=== PATIENT | female | born 1985 | race Caucasian/White ===

== ENCOUNTER 2016-04-20 15:45 | Emergency (ER) ==
[2016-04-20 16:31] LABS: AGAP 21; ALBUMIN 3.6 g/dL (3.5-5.0); ALKALINE PHOSPHATASE 99 U/L (32-104); BASO% 0.1 % (0.0-0.8); BUN 29 mg/dL (8-22); CALCIUM 9.4 mg/dL (8.8-10.2); CHLORIDE 95 mmol/L (98-107); COSMO 280; GOT 9 U/L (10-30); GPT 8 U/L (10-36); HEMATOCRIT 34.8 % (37.0-47.0); HEMOGLOBIN 10.9 g/dL (12.0-16.0); IMM GRAN# 0.03 X1000 (0.0-0.04); IMM GRAN% 0.3 % (0.0-0.5); LYMPH# 1.22 X1000 (1.2-3.4); MANUAL DIFF NEEDED? NO; MCH 21.5 PG (27-31); MCHC 31.3 g/dL (33-37); MCV 68.5 FL (81-99); MPV 11.5 FL (7.4-10.4); NEUT% 79.6 % (42.2-75.2); PLT 426 X1000 (130-400); POTASSIUM 2.9 mmol/L (3.5-5.1); RBC 5.08 XMIL (4.2-5.4); SODIUM 137 mmol/L (136-145); TCO2 21 mmol/L (25-35); TOTAL BILIRUBIN 0.31 mg/dL (0.20-1.00)
[2016-04-20] MEDS ORDERED: MORPHINE IV ONE (16:58)
[2016-04-20] MEDS ORDERED: ZOFRAN IV ONE (16:58)
[2016-04-20] MEDS ORDERED: NS 1,000 ML IV ONE (16:58)
[2016-04-20] MEDS ORDERED: MOTRIN PO ONE (16:59)
--- NOTE | 2016-04-20 16:59 | PROVIDER DOCUMENTATION ---
HPI-Abdominal Pain/GI Problem - General Chief Complaint: Abdominal Pain Stated Complaint: FEVER/VOMITING/CANNOT NOT VOID Time Seen by Provider: 04/20/16 16:46 Source: patient Allergies/Adverse Reactions: Patient Allergies Allergy/AdvReac Type Severity Reaction Status Date / Time hydroxyzine Allergy Severe heart race Verified 04/20/16 18:41 Latex, Natural Rubber Allergy Intermediate RASH Verified 04/20/16 18:41 tuberculin, purified protein Allergy Intermediate HIVES Verified 04/20/16 18:41 deriva [tuberculin,purif.prot.deriv.] diphenhydramine HCl * Allergy Mild RASH Verified 04/20/16 18:41 [From Benadryl] ketorolac tromethamine * Allergy Mild RASH Verified 04/20/16 18:41 [From Toradol] metoclopramide HCl * Allergy RASH Verified 04/20/16 18:41 [From Reglan] Penicillins Allergy RASH Verified 04/20/16 18:41 ondansetron HCl * AdvReac Intermediate VOMITING Verified 04/20/16 18:41 [From Zofran] Home Medications: Clonazepam [Klonopin] 1 mg PO TID 03/25/16 - History of Present Illness-ABD Nature of Presenting Problems: Pt is a 31 y/o F c chief complaint of lower abd pain and dysuria x 4 days. She has also had a subjective fever c chills and nausea and vomiting. Pt has an extensive h/o chronic abd pain stemming from endometriosis. In Dec 2015 she had a hysterectomy and has not had abd pain since. Pt states her pain is focalized on her L flank and radiates to her groin. Pt describes the pain as a stabbing sensation that is intermittent. Pt has a h/o renal stones. On arrival , pt is afebrile and in minimal distress. Review of Systems - Adult - REVIEW OF SYSTEMS - ADULT Constitutional: reports: no symptoms reported. denies: chills, fatique Eyes: reports: no symptoms reported. denies: blurred vision, double vision Ears, Nose, Mouth & Throat: reports: no symptoms reported. denies: ear pain, nose pain Cardiovascular: reports: no symptoms reported. denies: chest pain, orthopnea Respiratory: reports: no symptoms reported. denies: cough, shortness of breath Gastrointestinal: reports: abdominal pain. denies: nausea Genitourinary: reports: dysuria. denies: hematuria Musculoskeletal: reports: no symptoms reported. denies: bone pain, joint pain, joint swelling Integumentary: reports: no symptoms reported. denies: itching, rash Neurological: reports: no symptoms reported. denies: numbness, paresthesia Psychiatric: reports: no symptoms reported. denies: anxiety, emotional problems Endocrine: reports: no symptoms reported. denies: cold intolerance, heat intolerance Hematologic/Lymphatic: reports: no symptoms reported. denies: blood clots, low blood count Allergic/Immunologic: reports: no symptoms reported. denies: allergic reactions , food allergy All Other Systems: Reviewed and Negative Past History - Adult - PAST MEDICAL HISTORY-ADULT Review of Records: reports: Old Records Reviewed, Nursing Assessment Review, Medications Reviewed, Social history reviewed & non-contributory. Major Childhood Illnesses: denies: history unknown, Hepatitis B Cardiovascular: denies: A-Fib, CHF Respiratory: denies: bronchitis, cystic fibrosis Gastrointestinal: denies: Crohn's, colitis, inflammatory bowel disease Obstetrical/Gynecological: reports: endometriosis, ovarian cysts, PID/STD Genitourinary: denies: incontinence, chronic UTI's Musculoskeletal: reports: chronic pain (with narcotic abuse/dependence) Neurological: denies: CVA, Philippe's Disease, Muscular Dystrophy Psychiatric: reports: anxiety Endocrine/Immune: denies: hypoglycemia Other Conditions: reports: other cancer (R breast cancer dx in Jan 2016, managed by Dr. Sykes) Additional History: Frequent ER visits for vaginal bleeding, abdominal pain, and toothache. - PRIOR SURGERIES/PROCEDURES Surgical/Procedure History: reports: recent surgery, other (D&C 12/2013) - PRIOR HOSPITALIZATIONS Prior Hospitalizations: reports: none - IMMUNIZATION STATUS Childhood Immunizations: See Nurse Assessment Flu Vaccine: See Nurse Assessment - FAMILY HISTORY Family History: CAD over 55 yo - SOCIAL HISTORY Smoking: quit less than 1 year, cigarettes Substance Use: none/never Alcohol Use Frequency: never Living Situation: family Physical Exam-General - PHYSICAL EXAM-ADULT Initial Vital Signs Reviewed: Yes - CONSTITUTIONAL General Appearance: appears well, alert, no apparent distress - EYES Eyes: PERRL/EOMI, pink conjunctivae - HEAD, EARS, NOSE, MOUTH & THROAT HENMT: normocephalic/atraumatic, moist mucous membranes, normal ENT inspection - NECK Neck: non-tender, full range of motion, normal inspection - RESPIRATORY Respiratory: chest non-tender, lungs clear, normal breath sounds - CARDIOVASCULAR Cardiovascular: normal peripheral pulses, regular rate, rhythm, no edema - GASTROINTESTINAL (ABDOMEN) Abdominal Exam: normal bowel sounds, tenderness (L flank, LLQ pain) - LYMPHATIC Lymphatic: no adenopathy - MUSCULOSKELETAL Back Exam: normal inspection, no CVA tenderness, no vertebral tenderness Extremity: normal range of motion, non-tender, normal gait - SKIN Integumentary: normal color, normal turgor, warm/dry - NEUROLOGIC Neurologic: grossly normal, no motor/sensory deficits - PSYCHIATRIC Psych/Mental Status: normal mood/affect, normal thought content, normal thought process, oriented x 3 Progress - CT/MRI 1 CT Study: Abdomen, Pelvis Impression: Abnormal (BILAT PYELONEPHRITIS, WORST ON THE LEFT - DR. SCHNEIDER) Departure - Departure Time of Disposition Order: 19:38 DIAGNOSIS: Pyelonephritis UTI (urinary tract infection) Qualifiers: Urinary tract infection type: acute cystitis Hematuria presence: without hematuria Qualified Code(s): N30.00 - Acute cystitis without hematuria Disposition: HOME 01 Certified Medical Emergency: Emergent Condition: Stable Additional Instructions: ED Follow Up Instructions: You have been treated by a care provider in the Emergency Department. These instructions are being provided to you so you can have an understanding of how to care for yourself upon discharge. Upon discharge from the Emergency Department, you are responsible for making arrangements for follow-up care by a physician of your choice. Take all prescribed medications as directed. Return to the Emergency Department immediately for any new or worsening symptoms. You may call the Physician Referral phone number at [phone] to obtain a list of Physicians who are taking new patients. Prescriptions: Nitrofurantoin [place]/Macrocryst [Macrobid] 100 mg PO BID #14 capsule Hydrocodone/APAP 7.5 mg/325 mg [[place]-7.5] 1 each PO Q6H PRN PRN #10 tablet PRN Reason: Pain Promethazine [Phenergan] 25 mg PO Q6H PRN PRN #20 tablet PRN Reason: Nausea Referrals: Kaleb Mcarthur [Primary Care Provider] - Pasha Sanchez DO [STAFF PHYSICIAN] - Attestation - Physician/ Mid-level Attestation Patient care was provided by Mid-level provider (INSTRUCTIONAL TECHNOLOGY INSTRUCTOR/PA):: Yes Mid-level documentation review:: The Mid-level provider documentation, treatment plan and medical decision making was reviewed by the physician who agrees with all treatment and medical decision making by the MLP.
[2016-04-20 19:15] LABS: URINE CULTURE NEEDED? NO; URINE MICRO REVIEW NEEDED? NO; URINE SOURCE CLEAN CATCH
[2016-04-20 19:18] LABS: BILIRUBIN URINE NEGATIVE (NEGATIVE); BLOOD URINE NEGATIVE (NEGATIVE); COLOR YELLOW; GLUCOSE URINE NEGATIVE (NEGATIVE); LEUKOCYTES URINE LARGE (NEGATIVE); NITRITE URINE POSITIVE (NEGATIVE); PROTEIN URINE 70 mg/dL (NEGATIVE); SP GRAVITY URINE 1.023; TURBIDITY URINE HAZY (CLEAR); UROBILINOGEN URINE NORMAL (NORMAL)
[2016-04-20 19:19] LABS: UR EPITHELIAL CELLS <10 /HPF (<10); URINE BACTERIA 4+ /HPF; URINE RBC <10 /HPF (<10); URINE WBC TNTC /HPF (<10)
[2016-04-20] MEDS ORDERED: LEVAQUIN 500 MG/D5W 100 ML IV ONE (19:30)
[2016-04-20] MEDS ORDERED: MACROBID PO ONE (19:33)
[2016-04-20] MEDS ORDERED: KLOR-CON PO ONE (19:35)
[2016-04-20] MEDS ORDERED: PHENERGAN IV ONE (19:38)
[2016-04-20] MEDS ORDERED: SODIUM CHLORIDE 0.9% INJ ONE (19:38)
[2016-04-20] MEDS: NS + KCL 20 MEQ 1,000 ML IV SCH ×2 (19:58→21:45)
[2016-04-20] MEDS ORDERED: DILAUDID IV ONE (20:40)
[2016-04-20 21:17] VITALS: BP 107/74
--- NOTE | 2016-04-20 22:29 | Diag Imaging Result Document ---
PROCEDURE NAME: CT ABD/PELVIS W/ IV CONT ONLY - 04/20/2016 CT ABDOMEN AND PELVIS WITH IV CONTRAST: COMPARISON: 12/30/2015. FINDINGS: There is diffuse hepatic steatosis. There is bilateral heterogeneous enhancement of the kidneys that is more prominent on the left compatible with pyelonephritis. The left kidney is slightly enlarged. No discrete renal mass is identified. There is no evidence of significant hydronephrosis. However, the renal collecting systems are marginally prominent, likely related to the pyelonephritis. No ureteral stones are identified. The urinary bladder is unremarkable. There is nothing that would indicate appendicitis. There are few colonic diverticula, but there is no evidence of diverticulitis. There appears to have been a previous hysterectomy. The remainder of the solid viscera of the abdomen and pelvis and the remainder of the GI tract is essentially unremarkable. IMPRESSION: 1. Bilateral pyelonephritis that is worst on the left. 2. Diffuse hepatic steatosis.
== END 2016-04-20 22:05 | disposition home or self-care (01) ==
LOC: ED 15:45
DX: N12 Tubulo-interstitial nephritis, not specified as acute or chronic (principal); N30.00 Acute cystitis without hematuria; K76.0 Fatty (change of) liver, not elsewhere classified; R50.9 Fever, unspecified; R11.2 Nausea with vomiting, unspecified; R10.30 Lower abdominal pain, unspecified; R30.0 Dysuria; R10.9 Unspecified abdominal pain; R10.819 Abdominal tenderness, unspecified site; R10.814 Left lower quadrant abdominal tenderness; G89.29 Other chronic pain; F41.9 Anxiety disorder, unspecified; Z79.899 Other long term (current) drug therapy; Z87.442 Personal history of urinary calculi; Z85.3 Personal history of malignant neoplasm of breast; Z87.42 Personal history of other diseases of the female genital tract; Z87.891 Personal history of nicotine dependence; Z82.49 Family history of ischemic heart disease and other diseases of the circulatory system
CPT/HCPCS: 74177; 80053; 81001; 85025; 87804; J1170; J2270; J2405; J2550; J3480; J7030; Q9967

== ENCOUNTER 2016-06-26 13:51 | Emergency (ER) | payer OTHER ==
[2016-06-26 14:31] VITALS: BP 113/68
--- NOTE | 2016-06-26 15:27 | Diag Imaging Result Document ---
PROCEDURE NAME: CERVICAL SPINE COMPLETE - 06/26/2016 CERVICAL SPINE AP AND LATERAL WITH OBLIQUES, SIX VIEWS: FINDINGS: There is slight curvature to the spine on the frontal view. Good alignment on the lateral view. No precervical soft tissue swelling. No subluxation. No bone spurring. IMPRESSION: Negative exam. A CT is recommended if there is clinical concern for a neck fracture.
[2016-06-26] MEDS ORDERED: DECADRON IM ONE (16:06)
[2016-06-26] MEDS ORDERED: NORFLEX IM ONE (16:06)
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
== END 2016-06-26 16:24 | disposition home or self-care (01) ==
LOC: ED 13:51
DX: S16.1XXA Strain of muscle, fascia and tendon at neck level, initial encounter (principal); M54.2 Cervicalgia; M54.9 Dorsalgia, unspecified; V44.6XXA Car passenger injured in collision with heavy transport vehicle or bus in traffic accident, initial encounter; G89.29 Other chronic pain; E07.9 Disorder of thyroid, unspecified; C50.911 Malignant neoplasm of unspecified site of right female breast; Z87.42 Personal history of other diseases of the female genital tract; F17.210 Nicotine dependence, cigarettes, uncomplicated; Z71.6 Tobacco abuse counseling; Z79.899 Other long term (current) drug therapy; Z82.49 Family history of ischemic heart disease and other diseases of the circulatory system
CPT/HCPCS: 72050; 96372; J2360

== ENCOUNTER 2016-06-27 08:50 | Emergency (ER) ==
[2016-06-27 08:55] VITALS: BP 125/84
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
[2016-06-27] MEDS ORDERED: NORCO-7.5 PO ONE (10:02)
[2016-06-27] MEDS ORDERED: MOTRIN PO PRN (10:03)
[2016-06-27] MEDS ORDERED: ROBAXIN PO SCH (21:00)
[2016-06-28] MEDS ORDERED: PEPCID PO SCH (09:00)
== END 2016-06-27 10:59 | disposition home or self-care (01) ==
LOC: ED 08:50
DX: S16.1XXA Strain of muscle, fascia and tendon at neck level, initial encounter (principal); M54.2 Cervicalgia; R51 Headache; M79.602 Pain in left arm; M79.601 Pain in right arm; M54.6 Pain in thoracic spine; G89.29 Other chronic pain; Z87.42 Personal history of other diseases of the female genital tract; Z85.3 Personal history of malignant neoplasm of breast; Z82.49 Family history of ischemic heart disease and other diseases of the circulatory system; V89.2XXA Person injured in unspecified motor-vehicle accident, traffic, initial encounter

== ENCOUNTER 2016-06-27 12:47 | Emergency (ER) ==
[2016-06-27 13:01] VITALS: BP 118/85
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
== END 2016-06-27 14:36 | disposition home or self-care (01) ==
LOC: P.ED 12:47
DX: M62.838 Other muscle spasm (principal); M54.2 Cervicalgia; R10.30 Lower abdominal pain, unspecified; Z79.899 Other long term (current) drug therapy; F17.210 Nicotine dependence, cigarettes, uncomplicated; V89.2XXD Person injured in unspecified motor-vehicle accident, traffic, subsequent encounter
CPT/HCPCS: 99282

== ENCOUNTER 2016-07-03 11:04 | Emergency (ER) ==
[2016-07-03] MEDS ORDERED: NS 1,000 ML IV ONE (11:23)
[2016-07-03] MEDS ORDERED: ZOFRAN IV ONE (11:24)
[2016-07-03] MEDS ORDERED: MORPHINE IV ONE (12:03)
[2016-07-03] MEDS ORDERED: SODIUM CHLORIDE 0.9% INJ ONE ×2 (12:03→14:00)
[2016-07-03] MEDS ORDERED: PHENERGAN IV ONE ×2 (12:03→14:00)
[2016-07-03 12:19] LABS: URINE CULTURE PL NEEDED? NO; URINE SOURCE CLEAN CATCH
[2016-07-03 12:37] LABS: BASO% 0.1 % (0.0-0.8); EOS# 0.07 X1000 (0.0-0.7); EOS% 0.7 % (0.0-10.0); IMM GRAN# 0.01 X1000 (0.0-0.04); IMM GRAN% 0.1 % (0.0-0.5); LYMPH# 0.67 X1000 (1.2-3.4); LYMPH% 6.5 % (20.5-51.1); MANUAL DIFF NEEDED? YES; MCHC 30.8 g/dL (33-37); MCV 74.7 FL (81-99); MONO% 4.9 % (1.7-9.3); MPV 10.1 FL (7.4-10.4); PLT 562 X1000 (130-400); RBC 5.22 XMIL (4.2-5.4)
[2016-07-03 12:45] LABS: AGAP 13; ALBUMIN 4.4 g/dL (3.5-5.0); ALKALINE PHOSPHATASE 117 U/L (32-104); BUN 10 mg/dL (8-22); CALCIUM 9.8 mg/dL (8.8-10.2); CHLORIDE 101 mmol/L (98-107); COSMO 273; GOT 66 U/L (10-30); GPT 35 U/L (10-36); LIPASE 10 U/L (13-60); POTASSIUM 4.8 mmol/L (3.5-5.1); SODIUM 137 mmol/L (136-145); TCO2 23 mmol/L (25-35); TOTAL PROTEIN 8.4 g/dL (6.3-8.3)
[2016-07-03 12:52] LABS: BILIRUBIN URINE NEGATIVE (NEGATIVE); BLOOD URINE NEGATIVE (NEGATIVE); CLARITY CLEAR (CLEAR); COLOR YELLOW; GLUCOSE URINE NEGATIVE (NEGATIVE); LEUKOCYTES URINE 1+ (NEGATIVE); NITRITE URINE NEGATIVE (NEGATIVE); PROTEIN URINE TRACE mg/dL (NEGATIVE); SP GRAVITY URINE 1.005; UROBILINOGEN URINE NORMAL
[2016-07-03 12:53] LABS: URINE EPITHELIAL CELLS <10 /HPF (<10); URINE RBC <10 /HPF (<10)
--- NOTE | 2016-07-03 13:44 | Diag Imaging Result Document ---
PROCEDURE NAME: ABDOMEN FLAT/UPRIGHT - 07/03/2016 ABDOMEN, 2 VIEWS: COMPARISON: 03/07/2016. FINDINGS: There is a nonobstructive bowel gas pattern. No free air or abnormal calcifications. IMPRESSION: No acute disease.
[2016-07-03 13:53] LABS: EOS 1 % (1-10); LYMPHS 8 % (21-51); MONO 1 % (1-9); NRBC 1 % (0-0)
[2016-07-03] MEDS ORDERED: G.I. COCKTAIL PO ONE (14:00)
[2016-07-03] MEDS ORDERED: ROCEPHIN 1 GM/NS 50 ML IV ONE (14:00)
[2016-07-03] MEDS ORDERED: OFIRMEV 1000 MG/ISOTONIC SOLN 100 ML IV ONE (14:00)
[2016-07-03 14:09] LABS: NEUT% 87.7 % (42.2-75.2)
--- NOTE | 2016-07-03 14:25 | PROVIDER DOCUMENTATION ---
HPI-Abdominal Pain/GI Problem <ToneyTorsten - Last Filed: 07/03/16 14:23> - General Source: patient - History of Present Illness-ABD Nature of Presenting Problems: Pt is 31 y/o F presents to the ED with suprapubic pain. Pt states chronic UTIs and N/V. Pt states symptoms started last night. Abdominal Pain Onset Location: reports: suprapubic Pain Radiation: reports: no radiation Quality of Pain: reports: aching Severity in ED: reports: mild Onset/Duration: reports: last night Timing: reports: still present, intermittent Activities at Onset: reports: light activity Exposure to sick contacts?: No Modifying Factors: improves with: nothing Associated Symptoms: reports: nausea, vomiting. denies: anxiety, arm pain, back /neck pain, chest pain, constipation, cough, diaphoresis, diarrhea, dizziness, EENT symptoms, fatigue, fever/chills, genitourinary problems, headaches, heartburn, joint pain, loss of appetite, malaise, muscle aches, sinus congestion /drainage, rash, seizure, shortness of breath, sensory/motor loss, pain with inspiration, swelling/mass in abdomen, syncope, weakness, trouble walking Last BM: unsure Dark Stools Present?: reports: none noticed Rectal Bleeding: reports: none Rectal Pain: reports: none Emesis Description: reports: none Bruising or Bleeding Gums?: No Similar Symptoms Previously?: Yes Recently seen or treated by another doctor?: Yes <Corina Pretty - Last Filed: 07/03/16 14:31> - General Chief Complaint: N/V/D Stated Complaint: N/V/D Time Seen by Provider: 07/03/16 11:14 Allergies/Adverse Reactions: Patient Allergies Allergy/AdvReac Type Severity Reaction Status Date / Time hydroxyzine Allergy Severe heart race Verified 06/27/16 09:16 Latex, Natural Rubber Allergy Intermediate RASH Verified 06/27/16 09:16 tuberculin, purified protein Allergy Intermediate HIVES Verified 06/27/16 09:16 deriva [tuberculin,purif.prot.deriv.] diphenhydramine HCl * Allergy Mild RASH Verified 06/27/16 09:16 [From Benadryl] ketorolac tromethamine * Allergy Mild RASH Verified 06/27/16 09:16 [From Toradol] metoclopramide HCl * Allergy RASH Verified 06/27/16 09:16 [From Reglan] Penicillins Allergy RASH Verified 06/27/16 09:16 ondansetron HCl * AdvReac Intermediate VOMITING Verified 06/27/16 09:16 [From Zofran] Home Medications: Home Medication List Medication Instructions Recorded Confirmed Last Taken Type Famotidine [Pepcid] 20 mg PO DAILY #20 tablet 06/26/16 06/27/16 06/27/16 05:00 Rx Ibuprofen [Motrin] 800 mg PO Q8H PRN PRN #30 tablet 06/26/16 06/27/16 06/27/16 05:00 Rx Methocarbamol [Robaxin] 500 mg PO BID #30 tablet 06/26/16 06/27/16 06/27/16 05: 00 Rx Methocarbamol 500 mg PO BID #20 tablet 06/27/16 Unknown Rx Tramadol [Ultram] 50 mg PO Q8HR #10 tablet 06/27/16 Unknown Rx Tramadol [Ultram] 50 mg PO Q8HR #6 tablet 06/27/16 Unknown Rx Promethazine [Phenergan] 25 mg PO Q6H PRN PRN #20 tablet 07/03/16 Unknown Rx Sulfamethoxazole/Trimethoprim 1 each PO BID #10 tablet 07/03/16 Unknown Rx [Bactrim Ds Tablet] Review of Systems - Adult - REVIEW OF SYSTEMS - ADULT Constitutional: reports: no symptoms reported Eyes: reports: no symptoms reported Ears, Nose, Mouth & Throat: reports: no symptoms reported Cardiovascular: reports: irregular heart rate (tachy). denies: chest pain, heart murmur Respiratory: reports: no symptoms reported Gastrointestinal: reports: abdominal pain (suprapubic), nausea, vomiting. denies: diarrhea Genitourinary: reports: no symptoms reported Musculoskeletal: reports: no symptoms reported Integumentary: reports: no symptoms reported Neurological: reports: no symptoms reported Psychiatric: reports: no symptoms reported Endocrine: reports: no symptoms reported Hematologic/Lymphatic: reports: no symptoms reported Allergic/Immunologic: reports: no symptoms reported All Other Systems: Reviewed and Negative <Corina Pretty - Last Filed: 07/03/16 14:31> Past History - Adult - PAST MEDICAL HISTORY-ADULT Major Childhood Illnesses: denies: history unknown, Hepatitis B Cardiovascular: denies: A-Fib, CHF Respiratory: denies: bronchitis, cystic fibrosis Gastrointestinal: reports: other (chronic abdominal pain) Obstetrical/Gynecological: reports: endometriosis, ovarian cysts Genitourinary: denies: incontinence, chronic UTI's Musculoskeletal: reports: chronic pain (with narcotic abuse/dependence) Neurological: denies: CVA, [place]'s Disease, Muscular Dystrophy Psychiatric: reports: anxiety Endocrine/Immune: reports: thyroid disorder. denies: hypoglycemia Other Conditions: reports: other cancer (R breast cancer dx in Jan 2016, managed by Dr. Sykes) Additional History: Frequent ER visits for vaginal bleeding, abdominal pain, and toothache. - PRIOR SURGERIES/PROCEDURES Surgical/Procedure History: reports: hysterectomy, - PRIOR HOSPITALIZATIONS Prior Hospitalizations: reports: none - IMMUNIZATION STATUS Childhood Immunizations: See Nurse Assessment Flu Vaccine: See Nurse Assessment - FAMILY HISTORY Family History: reviewed, not pertinent <Torsten Ziegler - Last Filed: 07/03/16 14:23> - PAST MEDICAL HISTORY-ADULT Review of Records: reports: Nursing Assessment Review, Medications Reviewed, Social history reviewed & non-contributory. Major Childhood Illnesses: reports: denies history Cardiovascular: reports: HTN Respiratory: reports: denies history Gastrointestinal: reports: denies history Obstetrical/Gynecological: reports: denies history Genitourinary: reports: denies history Musculoskeletal: reports: denies history Neurological: reports: denies history Psychiatric: reports: anxiety Endocrine/Immune: reports: denies history Other Conditions: reports: denies history - PRIOR SURGERIES/PROCEDURES Surgical/Procedure History: reports: hysterectomy - IMMUNIZATION STATUS Childhood Immunizations: See Nurse Assessment Flu Vaccine: See Nurse Assessment - FAMILY HISTORY Family History: reviewed, not pertinent - SOCIAL HISTORY Smoking: denies Substance Use: denies Living Situation: family <Corina Pretty - Last Filed: 07/03/16 14:31> Physical Exam-General - PHYSICAL EXAM-ADULT Initial Vital Signs Reviewed: Yes - CONSTITUTIONAL General Appearance: appears well, alert, no apparent distress - EYES Eyes: PERRL/EOMI, pink conjunctivae, fundi clear, no AV nicking - HEAD, EARS, NOSE, MOUTH & THROAT HENMT: normocephalic/atraumatic, moist mucous membranes, normal ENT inspection, TMs normal, pharynx normal - NECK Neck: non-tender, full range of motion, supple, normal inspection - RESPIRATORY Respiratory: chest non-tender, lungs clear, normal breath sounds, no pleuratic chest pain, no respiratory distress, no accessory muscle use - CARDIOVASCULAR Cardiovascular: normal peripheral pulses, no edema, no gallop, no JVD, no murmur , tachycardia - GASTROINTESTINAL (ABDOMEN) Abdominal Exam: normal bowel sounds, soft, no organomegaly, no pulsatile mass, tenderness - LYMPHATIC Lymphatic: no adenopathy - MUSCULOSKELETAL Back Exam: normal inspection, no CVA tenderness, no vertebral tenderness Extremity: normal range of motion, non-tender, normal gait, normal inspection, no pedal edema, no calf tenderness, normal capillary refill, pelvis stable - SKIN Integumentary: normal color, normal turgor, warm/dry - NEUROLOGIC Neurologic: grossly normal - PSYCHIATRIC Psych/Mental Status: normal mood/affect, oriented x 3 <Corina Pretty - Last Filed: 07/03/16 14:31> Progress - PLAN OF CARE/RESULTS Progress/Plan/Lab Results: Laboratory Tests 07/03/16 07/03/16 07/03/16 11:59 11:59 12:11 WBC 10.28 RBC 5.22 Hgb 12.0 Hct 39.0 MCV 74.7 L MCH 23.0 L MCHC 30.8 L RDW Std Deviation 19.5 H Plt Count 562 H MPV 10.1 Immature Gran % (Auto) 0.1 Neut % (Auto) 87.7 H Lymph % (Auto) 6.5 L [place] % (Auto) 4.9 Eos % (Auto) 0.7 Baso % (Auto) 0.1 Immature Gran # (Auto) 0.01 Neut # (Auto) 9.02 H Lymph # (Auto) 0.67 L [place] # (Auto) 0.50 Eos # (Auto) 0.07 Baso # (Auto) 0.01 Segmented Neutrophils 90 H Lymphocytes 8 L Monocytes 1 Eosinophils 1 Nucleated RBCs 1 H Sodium 137 Potassium 4.8 Chloride 101 Carbon Dioxide 23 L Anion Gap 13 BUN 10 Creatinine 0.5 Estimated GFR/1.73 m2 > 60 BUN/Creatinine Ratio 20 Glucose 99 Calculated Osmolality 273 Calcium 9.8 Total Bilirubin 0.50 AST 66 H ALT 35 Alkaline Phosphatase 117 H Total Protein 8.4 H Albumin 4.4 Globulin 4.0 Albumin/Globulin Ratio 1.0 Lipase 10 L Urine Source CLEAN CATCH Urine Color YELLOW Urine Clarity CLEAR Urine pH 8.0 Ur Specific [place] 1.005 Urine Protein TRACE A Urine Ketones TRACE Urine Blood NEGATIVE Urine Nitrite NEGATIVE Urine Bilirubin NEGATIVE Urine Urobilinogen NORMAL Urine Microscopic RBC <10 Urine WBC 1+ A Urine Microscopic WBC 10-20 A Ur Epithelial Cells <10 Urine Glucose NEGATIVE Orders Category Date Time Status Saline Loc NOW Care 07/03/16 11:23 Active ABDOMEN FLAT/UPRIGHT [RAD] Stat Exams 07/03/16 11:24 Draft CBC WITH DIFF [HEME] Stat Lab 07/03/16 11:59 Completed COMPREHENSIVE METABOLIC PANEL [CHEM] Stat Lab 07/03/16 11:59 Completed LIPASE [CHEM] Stat Lab 07/03/16 11:[address] W/POSS RFLX CULT [URINALYSIS] Stat Lab 07/03/16 12:11 Completed 0.9% Sodium Chloride Inj [Ns] 1,000 ml Med 07/03/16 11:23 Discontinued IV 999 mls/hr Acetaminophen [Ofirmev 1000 mg/Isotonic Soln] 100 ml Med 07/03/16 14:00 Discontinued IV NOW CefTRIAXONE 1 GM/NS [Rocephin 1 gm/Ns] 50 ml Med 07/03/16 14:00 Discontinued IV NOW Lido/[place] Alk/Al&mg Hydrox [G.i. Cocktail] Med 07/03/16 14:00 Discontinued 30 ml PO NOW ONE Morphine Med 07/03/16 12:03 Discontinued 2 mg IV NOW ONE Ondansetron [Zofran] Med 07/03/16 11:24 Discontinued 4 mg IV NOW ONE Promethazine [Phenergan] Med 07/03/16 12:03 Discontinued 12.5 mg IV NOW ONE Promethazine [Phenergan] Med 07/03/16 14:00 Discontinued 12.5 mg IV NOW ONE Sodium Chloride 0.9% Med 07/03/16 12:03 Discontinued 10 ml INJ NOW ONE Sodium Chloride 0.9% Med 07/03/16 14:00 Discontinued 10 ml INJ NOW ONE Vital Signs - 24 hr 07/03/16 07/03/16 11:10 11:15 Temperature 97.9 F Pulse Rate 118 H Pulse Rate [ 135 H Sitting] Pulse Rate [ 154 H Standing] Pulse Rate [ 121 H Supine] Respiratory 20 Rate Blood Pressure 118/88 Blood Pressure 119/79 [Sitting] Blood Pressure 123/70 [Standing] Blood Pressure 108/74 [Supine] O2 Sat by Pulse 99 Oximetry <Corina Pretty - Last Filed: 07/03/16 14:31> Departure - Departure Time of Disposition Order: 14:24 Certified Medical Emergency: Emergent <Torsten Ziegler - Last Filed: 07/03/16 14:23> - Departure Time of Disposition Order: 14:31 Certified Medical Emergency: Emergent <Corina Pretty - Last Filed: 07/03/16 14:31> - Departure DIAGNOSIS: UTI (urinary tract infection) Qualifiers: Urinary tract infection type: site unspecified Hematuria presence: without hematuria Qualified Code(s): N39.0 - Urinary tract infection, site not specified Nausea & vomiting Qualifiers: Vomiting type: unspecified Vomiting Intractability: non-intractable Qualified Code(s): R11.2 - Nausea with vomiting, unspecified Disposition: HOME 01 Condition: Good Additional Instructions: Take medication as prescribed. Follow up with your primary care provider and urologist. ED Follow Up Instructions: You have been treated by a care provider in the Emergency Department. These instructions are being provided to you so you can have an understanding of how to care for yourself upon discharge. Upon discharge from the Emergency Department, you are responsible for making arrangements for follow-up care by a physician of your choice. Take all prescribed medications as directed. Return to the Emergency Department immediately for any new or worsening symptoms. You may call the Physician Referral phone number at [phone] to obtain a list of Physicians who are taking new patients. Prescriptions: Sulfamethoxazole/Trimethoprim [Bactrim Ds Tablet] 1 each PO BID #10 tablet Promethazine [Phenergan] 25 mg PO Q6H PRN PRN #20 tablet PRN Reason: Nausea Referrals: None,PCP [Primary Care Provider] - Michael Edouard MD [STAFF PHYSICIAN] - Attestation - Physician/ SANDRA Attestation Patient care was provided by Advanced Practice Provider:: Yes Advanced Practice Provider:: Torsten Ziegler Advanced Practice Provider documentation review:: The Mid-level provider documentation, treatment plan and medical decision making was reviewed by the physician who agrees with all treatment and medical decision making by the [facility]. <Torsten Ziegler - Last Filed: 07/03/16 14:23> - Scribe Verification/Attestation Scribe:: Corina Pretty Acting as Scribe for:: Torsten Ziegler Scribe documention review:: This chart was documented by a scribe and accurately reflects the service the provider performed and the decisions made by the provider. <Corina Pretty - Last Filed: 07/03/16 14:31> Physician Attestation
[2016-07-03 15:08] VITALS: BP 100/065
== END 2016-07-03 15:07 | disposition home or self-care (01) ==
LOC: P.ED 11:04
DX: N39.0 Urinary tract infection, site not specified (principal); R11.2 Nausea with vomiting, unspecified; R10.30 Lower abdominal pain, unspecified; G89.29 Other chronic pain; Z87.448 Personal history of other diseases of urinary system; R00.0 Tachycardia, unspecified; E07.9 Disorder of thyroid, unspecified; I10 Essential (primary) hypertension; C50.911 Malignant neoplasm of unspecified site of right female breast; Z87.42 Personal history of other diseases of the female genital tract; Z79.899 Other long term (current) drug therapy
CPT/HCPCS: 74020; 80053; 81001; 83690; 85025; 96361; 96365; 96375; 96376; J0131; J0696; J2270; J2405; J2550; J7030

== ENCOUNTER 2016-07-04 18:21 | Emergency (ER) ==
[2016-07-04] MEDS ORDERED: PHENERGAN IM ONE (20:56)
[2016-07-04] MEDS ORDERED: MORPHINE IM ONE (20:56)
[2016-07-04 20:57] LABS: URINE MICRO REVIEW NEEDED? NO; URINE SOURCE CLEAN CATCH
--- NOTE | 2016-07-04 21:02 | PROVIDER DOCUMENTATION ---
HPI-Abdominal Pain/GI Problem - General Source: patient - History of Present Illness-ABD Abdominal Pain Onset Location: reports: RUQ, RLQ, epigastric Pain Radiation: reports: no radiation Quality of Pain: reports: sharp Severity in ED: reports: mild Onset/Duration: reports: 1 week ago Timing: reports: still present Activities at Onset: reports: none Exposure to sick contacts?: No Modifying Factors: improves with: nothing Associated Symptoms: reports: diarrhea, nausea, vomiting. denies: chest pain, fever/chills, shortness of breath Last BM: this morning Dark Stools Present?: reports: none noticed Rectal Bleeding: reports: none # of Diarrhea Episodes: 1 Rectal Pain: reports: none Emesis Description: reports: none Bruising or Bleeding Gums?: No Similar Symptoms Previously?: No Recently seen or treated by another doctor?: No <Rei Kam - Last Filed: 07/04/16 20:56> <Casey Fatima - Last Filed: 07/04/16 21:40> - General Chief Complaint: Abdominal Pain Stated Complaint: VOMITING RECHECK FROM [facility] Time Seen by Provider: 07/04/16 20:17 Allergies/Adverse Reactions: Patient Allergies Allergy/AdvReac Type Severity Reaction Status Date / Time hydroxyzine Allergy Severe heart race Verified 07/04/16 20:49 Latex, Natural Rubber Allergy Intermediate RASH Verified 07/04/16 20:49 tuberculin, purified protein Allergy Intermediate HIVES Verified 07/04/16 20:49 deriva [tuberculin,purif.prot.deriv.] diphenhydramine HCl * Allergy Mild RASH Verified 07/04/16 20:49 [From Benadryl] ketorolac tromethamine * Allergy Mild RASH Verified 07/04/16 20:49 [From Toradol] metoclopramide HCl * Allergy RASH Verified 07/04/16 20:49 [From Reglan] Penicillins Allergy RASH Verified 07/04/16 20:49 ondansetron HCl * AdvReac Intermediate VOMITING Verified 07/04/16 20:49 [From Zofran] Home Medications: Home Medication List Medication Instructions Recorded Confirmed Last Taken Type Hydrocodone/Acetaminophen [[place] 1 each PO Q4-6H PRN PRN #10 tablet 07/04/16 Unknown Rx 7.5-325 Tablet] Phenazopyridine HCl [Pyridium] 200 mg PO TID #7 tablet 07/04/16 Unknown Rx Promethazine [Phenergan] 25 mg PO Q6H PRN PRN #20 tablet 07/04/16 Unknown Rx Review of Systems - Adult - REVIEW OF SYSTEMS - ADULT Constitutional: denies: chills, fever, night sweats Eyes: denies: discharge, blurred vision, double vision Ears, Nose, Mouth & Throat: denies: ear pain, mouth swelling, throat pain Cardiovascular: denies: chest pain, irregular heart rate, palpitations Respiratory: denies: cough, shortness of breath, wheezing Gastrointestinal: reports: abdominal pain, diarrhea, nausea, vomiting Genitourinary: reports: dysuria. denies: flank pain, hematuria Musculoskeletal: denies: back pain, joint pain, neck pain Integumentary: denies: hives, itching, rash Neurological: denies: dizziness/vertigo, headache/migraines, numbness All Other Systems: Reviewed and Negative <Rei Kam - Last Filed: 07/04/16 20:56> Past History - Adult - PAST MEDICAL HISTORY-ADULT Review of Records: reports: Nursing Assessment Review, Medications Reviewed Cardiovascular: reports: HTN Psychiatric: reports: anxiety Additional History: Frequent ER visits for vaginal bleeding, abdominal pain, and toothache. - PRIOR SURGERIES/PROCEDURES Surgical/Procedure History: reports: hysterectomy - PRIOR HOSPITALIZATIONS Prior Hospitalizations: reports: none - IMMUNIZATION STATUS Childhood Immunizations: See Nurse Assessment Flu Vaccine: See Nurse Assessment - FAMILY HISTORY Family History: reviewed, not pertinent - SOCIAL HISTORY Smoking: less than 1 pack/day Provider spent 3-5 mins advising pt. on dangers of tobacco.: Discussed manners to quit use, and f/u contacts for add'l counseling. Substance Use: none/never Alcohol Use Frequency: never Living Situation: family <Rei Kam - Last Filed: 07/04/16 20:56> Physical Exam-General - PHYSICAL EXAM-ADULT Initial Vital Signs Reviewed: Yes - CONSTITUTIONAL General Appearance: appears well, alert, no apparent distress - EYES Eyes: PERRL/EOMI, pink conjunctivae, fundi clear, no AV nicking - HEAD, EARS, NOSE, MOUTH & THROAT HENMT: normocephalic/atraumatic, moist mucous membranes - NECK Neck: normal inspection - RESPIRATORY Respiratory: chest non-tender, lungs clear, normal breath sounds, no pleuratic chest pain, no respiratory distress, no accessory muscle use - CARDIOVASCULAR Cardiovascular: normal peripheral pulses, regular rate, rhythm, no edema, no gallop, no JVD, no murmur - GASTROINTESTINAL (ABDOMEN) Abdominal Exam: normal bowel sounds, soft, no organomegaly, no pulsatile mass, tenderness - MUSCULOSKELETAL Back Exam: normal inspection, no vertebral tenderness, CVA tenderness Extremity: normal range of motion, normal inspection - SKIN Integumentary: normal color, normal turgor, warm/dry - PSYCHIATRIC Psych/Mental Status: normal mood/affect, normal thought content, normal thought process, oriented x 3 <Rei Kam - Last Filed: 07/04/16 20:56> Progress - PLAN OF CARE/RESULTS Progress/Plan/Lab Results: Laboratory Tests 07/04/16 20:50 Urine Source CLEAN CATCH Urine Color YELLOW Urine Turbidity CLEAR Urine pH 6.0 Ur Specific [place] 1.041 Urine Protein 50 A Ur Glucose (Stick) NEGATIVE Ur Ketones (Stick) TRACE A Urine Blood NEGATIVE Urine Nitrite NEGATIVE Urine Bilirubin NEGATIVE Urobilinogen Dipstick 2 A Urine Leukocytes TRACE A Urine WBC (Auto) 10-20 A Urine RBC (Auto) <10 U Epithel Cells (Auto) <10 Urine Bacteria (Auto) NEGATIVE Orders Category Date Time Status UA Reflex [URINALYSIS W/POSS RFLX CULT] [URINALYSIS] Lab 07/04/16 20:50 Completed Stat URINE CULTURE [RM] Routine Lab 07/04/16 21:13 Received Hydrocodone/APAP 7.5 mg/325 mg [[place]-7.5] Med 07/04/16 21:37 Once 1 each PO NOW ONE Morphine Med 07/04/16 20:56 Discontinued 4 mg IM NOW ONE Phenazopyridine [Pyridium] Med 07/04/16 21:34 Discontinued 200 mg PO NOW ONE Promethazine [Phenergan] Med 07/04/16 20:56 Discontinued 25 mg IM NOW ONE Vital Signs Temp Pulse Resp BP Pulse Ox 07/04/16 18:32 98.2 F 119 H 16 95/60 99 hydroxyzine Allergy (Severe, Verified 07/04/16 20:49) heart race Latex, Natural Rubber Allergy (Intermediate, Verified 07/04/16 20:49) RASH tuberculin, purified protein deriva [tuberculin,purif.prot.deriv.] Allergy ( Intermediate, Verified 07/04/16 20:49) HIVES diphenhydramine HCl * [From Benadryl] Allergy (Mild, Verified 07/04/16 20:49) RASH ketorolac tromethamine * [From Toradol] Allergy (Mild, Verified 07/04/16 20:49) RASH metoclopramide HCl * [From Reglan] Allergy (Verified 07/04/16 20:49) RASH Penicillins Allergy (Verified 07/04/16 20:49) RASH ondansetron HCl * [From Zofran] Adverse Reaction (Intermediate, Verified 20:49) VOMITING No Home Medications 07/04/16 I&O 07/03/16 07/04/16 07/05/16 06:59 06:59 06:59 Output Total 70 Balance -70 Laboratory 07/04/16 20:50 Urine Source CLEAN CATCH Urine Color YELLOW Urine Turbidity CLEAR Urine pH 6.0 Ur Specific [place] 1.041 Urine Protein 50 A Ur Glucose (Stick) NEGATIVE Ur Ketones (Stick) TRACE A Urine Blood NEGATIVE Urine Nitrite NEGATIVE Urine Bilirubin NEGATIVE Urobilinogen Dipstick 2 A Urine Leukocytes TRACE A Urine WBC (Auto) 10-20 A Urine RBC (Auto) <10 U Epithel Cells (Auto) <10 Urine Bacteria (Auto) NEGATIVE - REASSESSMENT Reassessment #1 Time Reassessed: 21:38 (nausea gone) Status: improving <Casey Fatima - Last Filed: 07/04/16 21:40> Departure <Rei Kam - Last Filed: 07/04/16 20:56> - Departure Time of Disposition Order: 21:38 Certified Medical Emergency: Emergent <Casey Fatima - Last Filed: 07/04/16 21:40> - Departure DIAGNOSIS: UTI (urinary tract infection) Qualifiers: Urinary tract infection type: site unspecified Hematuria presence: without hematuria Qualified Code(s): N39.0 - Urinary tract infection, site not specified Disposition: HOME 01 Condition: Good Additional Instructions: ED Follow Up Instructions: You have been treated by a care provider in the Emergency Department. These instructions are being provided to you so you can have an understanding of how to care for yourself upon discharge. Upon discharge from the Emergency Department, you are responsible for making arrangements for follow-up care by a physician of your choice. Take all prescribed medications as directed. Return to the Emergency Department immediately for any new or worsening symptoms. You may call the Physician Referral phone number at [phone] to obtain a list of Physicians who are taking new patients. Prescriptions: Hydrocodone/Acetaminophen [[place] 7.5-325 Tablet] 1 each PO Q4-6H PRN PRN #10 tablet PRN Reason: Pain Promethazine [Phenergan] 25 mg PO Q6H PRN PRN #20 tablet PRN Reason: Nausea And Vomiting Phenazopyridine HCl [Pyridium] 200 mg PO TID #7 tablet Physician Attestation
[2016-07-04 21:11] LABS: BILIRUBIN URINE NEGATIVE (NEGATIVE); BLOOD URINE NEGATIVE (NEGATIVE); COLOR YELLOW; GLUCOSE URINE NEGATIVE (NEGATIVE); LEUKOCYTES URINE TRACE (NEGATIVE); NITRITE URINE NEGATIVE (NEGATIVE); PROTEIN URINE 50 mg/dL (NEGATIVE); SP GRAVITY URINE 1.041; TURBIDITY URINE CLEAR (CLEAR); UROBILINOGEN URINE 2 mg/dL (NORMAL)
[2016-07-04 21:12] LABS: UR EPITHELIAL CELLS <10 /HPF (<10); URINE BACTERIA NEGATIVE /HPF; URINE CULTURE NEEDED? YES; URINE RBC <10 /HPF (<10)
[2016-07-04] MEDS ORDERED: PYRIDIUM PO ONE (21:34)
[2016-07-04] MEDS ORDERED: NORCO-7.5 PO ONE (21:37)
[2016-07-04 22:07] VITALS: BP 104/69
== END 2016-07-04 22:08 | disposition home or self-care (01) ==
LOC: ED 18:21
DX: N39.0 Urinary tract infection, site not specified (principal); R10.9 Unspecified abdominal pain; R19.7 Diarrhea, unspecified; R11.2 Nausea with vomiting, unspecified; R30.0 Dysuria; I10 Essential (primary) hypertension; F17.210 Nicotine dependence, cigarettes, uncomplicated; Z71.6 Tobacco abuse counseling
CPT/HCPCS: 81001; 87088; J2270; J2550

== ENCOUNTER 2018-06-25 10:50 | Inpatient (IN) ==
[2018-06-25] MEDS ORDERED: BENTYL PO PRN (14:25)
[2018-06-25] MEDS ORDERED: IMODIUM PO PRN (14:25)
[2018-06-25] MEDS ORDERED: SENOKOT PO PRN (14:25)
[2018-06-25] MEDS ORDERED: ROBAXIN PO PRN (14:25)
[2018-06-25] MEDS ORDERED: ZOFRAN IV PRN (14:25)
[2018-06-25] MEDS ORDERED: ATARAX PO PRN (14:25)
[2018-06-25] MEDS ORDERED: LIBRIUM PO PRN (14:25)
[2018-06-25] MEDS ORDERED: MOTRIN PO PRN (14:25)
[2018-06-25] MEDS ORDERED: PHENOBARBITAL IV PRN (14:25)
[2018-06-25] MEDS ORDERED: TUBERSOL ID ONE (14:25)
[2018-06-25] MEDS ORDERED: DESYREL PO PRN (14:25)
[2018-06-25] MEDS ORDERED: SEROQUEL PO PRN (14:25)
[2018-06-25] MEDS ORDERED: TYLENOL PO PRN (14:25)
[2018-06-25] MEDS ORDERED: MAALOX PLUS LIQUID PO PRN (14:25)
[2018-06-25] MEDS ORDERED: D5W 1,000 ML IV PRN (14:25)
[2018-06-25] MEDS ORDERED: DULCOLAX PR PRN (14:25)
[2018-06-25] MEDS ORDERED: SINEMET 25/100 PO PRN (14:25)
[2018-06-25] MEDS ORDERED: ZOFRAN ODT PO PRN (14:25)
[2018-06-25] MEDS ORDERED: SUBOXONE 2 MG/0.5 MG FILM SL SCH (14:30)
[2018-06-25 14:45] LABS: UR AMPHETAMINES QUAL NONE DETECTED (NONE DETECT); UR BARBITUATES QUAL NONE DETECTED (NONE DETECT); UR BENZODIAZEPIN QUAL PRESUMPTIVE POSITIVE (NONE DETECT); UR COCAINE QUAL NONE DETECTED (NONE DETECT); UR METHADONE QUAL NONE DETECTED (NONE DETECT); UR METHAMPHETAMINE QUAL NONE DETECTED (NONE DETECT); UR OPIATES QUAL PRESUMPTIVE POSITIVE (NONE DETECT); UR OXYCODONE QUAL NONE DETECTED (NONE DETECT); UR PCP QUAL NONE DETECTED (NONE DETECT)
[2018-06-25 14:46] LABS: UR CANNABINOIDS QUAL PRESUMPTIVE POSITIVE (NONE DETECT); UR PROPOXYPHENE QUAL NONE DETECTED (NONE DETECT); UR TCA QUAL NONE DETECTED (NONE DETECT)
[2018-06-25 15:33] LABS: HEMATOCRIT 38.8 % (37.0-47.0); HEMOGLOBIN 12.8 g/dL (12.0-16.0); MCH 28.9 PG (27-31); MCV 87.6 FL (81-99); MPV 10.2 FL (7.4-10.4); RBC 4.43 XMIL (4.2-5.4); RDW 14.4 % (11.5-14.5); WBC 6.13 X1000 (4.8-10.8)
[2018-06-25 15:50] LABS: AMYLASE 31 U/L (20-200); LIPASE 33 U/L (13-60)
[2018-06-25 15:57] LABS: AGAP 11; ALBUMIN 3.9 g/dL (3.5-5.0); ALKALINE PHOSPHATASE 88 U/L (32-104); BUN 7 mg/dL (8-22); CALCIUM 8.7 mg/dL (8.8-10.2); CHLORIDE 107 mmol/L (98-107); COSMO 284; CREATININE 0.4 mg/dL (0.5-0.9); ESTIMATED GFR > 60; GLUCOSE 122 mg/dL (70-104); GOT 11 U/L (10-30); GPT < 5 U/L (10-36); SODIUM 143 mmol/L (136-145); TCO2 26 mmol/L (25-35); TOTAL PROTEIN 6.8 g/dL (6.3-8.3)
[2018-06-25 16:02] LABS: INR 0.98; PROTIME 13.5 Seconds (11.0-16.0)
[2018-06-25 16:04] LABS: URINE SOURCE VOIDED
[2018-06-25 16:07] LABS: BILIRUBIN URINE NEGATIVE (NEGATIVE); BLOOD URINE NEGATIVE (NEGATIVE); CLARITY CLEAR (CLEAR); COLOR YELLOW; GLUCOSE URINE NEGATIVE (NEGATIVE); KETONE URINE NEGATIVE (NEGATIVE); LEUKOCYTES URINE TRACE (NEGATIVE); NITRITE URINE NEGATIVE (NEGATIVE); PROTEIN URINE NEGATIVE (NEGATIVE); UROBILINOGEN URINE NORMAL
[2018-06-25 16:19] LABS: URINE BACTERIA 1+ /HFP; URINE CAST NONE SEEN /LPF; URINE CRYSTAL NONE SEEN /HPF; URINE EPITHELIAL CELLS >10 /HPF (<10); URINE RBC <10 /HPF (<10); URINE WBC <10 /HPF (<10); URINE YEAST NONE SEEN /HPF
[2018-06-25] MEDS: KLONOPIN PO PRN (18:13)
[2018-06-25] MEDS: SUBOXONE 2 MG/0.5 MG FILM SL SCH (18:13)
[2018-06-25] MEDS: NICODERM PATCH TD PRN (18:17)
[2018-06-26] MEDS: NEURONTIN PO SCH ×4 (00:19→17:45)
[2018-06-26] MEDS: PROTONIX PO SCH (06:06)
[2018-06-26] MEDS: SUBOXONE 2 MG/0.5 MG FILM SL SCH ×2 (06:06→17:45)
[2018-06-26] MEDS ORDERED: BLISTEX MEDICATED BERRY LIP BALM TOP PRN (06:10)
[2018-06-26] MEDS: THERA M PLUS PO SCH (08:42)
[2018-06-26] MEDS: KLONOPIN PO PRN ×2 (08:42→17:50)
[2018-06-26] MEDS: FOLIC ACID PO SCH (08:42)
[2018-06-26] MEDS: VITAMIN B-1 PO SCH (08:42)
--- NOTE | 2018-06-26 09:09 | HISTORY AND PHYSICAL ---
CHIEF COMPLAINT: Nausea, vomiting. HISTORY OF PRESENT ILLNESS: The patient presented to [facility] secondary to nausea, vomiting, abdominal pain, myalgias. She has been using and abusing opiates and is it creating problems in her life. She has been trying to improve, but her withdrawal symptoms become too severe. SOCIAL HISTORY: Patient is legally . She is unemployed. Lives at home in [place], PAST MEDICAL HISTORY: Significant for chronic anxiety, high blood pressure. She has had weight loss over the last few months due to her stress and opiate usage. She does have a history of blood clots, is no longer on medications. MEDICATIONS: Klonopin, Neurontin. ALLERGIES: Penicillin, Zofran, latex. REVIEW OF SYSTEMS: CINA score 16 secondary to abdominal pain, nausea, vomiting, diarrhea, frequent temperature changes, myalgias, nasal stuffiness, watery eyes, runny nose, paroxysmal sweating, frequent episodes of yawning. Denies any headaches, blurred vision, change in vision. Denies any focalized numbness, tingling or weakness in her extremities. Denies dysuria, frequency, urgency. Denies hesitancy, polyuria or polydipsia. SUBSTANCE ABUSE HISTORY: The patient was in [facility] in 2016, did not remain sober. Started smoking marijuana at age 21. Does not smoke currently. Has not smoked in several years. Started opiates at 31 currently taking up to 14 Percocet or Wever a day. Started smoking at age 18. Currently smokes a pack a day. FAMILY HISTORY: Noncontributory. PHYSICAL EXAMINATION: VITAL SIGNS: Reviewed and stable. GENERAL: Patient is awake, alert, currently in no respiratory distress. She is somewhat ill- appearing due to her withdrawal symptoms. She is awake, alert, oriented x3. HEENT: Normocephalic. NECK: Supple. CARDIOVASCULAR: Regular rate. No murmurs. CHEST: Clear nonlabored. ABDOMEN: Soft, nondistended, nontender. EXTREMITIES: Moves all extremities. NEUROLOGIC: No focal changes. SKIN: Warm dry no rashes. ASSESSMENT: 1. Nausea, vomiting, abdominal pain. 2. Myalgias. 3. Paresthesias. 4. Paroxysmal sweating. 5. Opiate abuse withdrawal, will admit for stabilization. 6. Chronic anxiety. PLAN: We will admit patient to the hospital. We will decrease her Klonopin. We will start Suboxone, begin counseling, treat symptomatically. Further orders as needed. cc: Louis Reyes MD
--- NOTE | 2018-06-26 10:27 | PROGRESS NOTE ---
DATE: 06/26/2018 SUBJECTIVE: Patient notes that she is feeling a lot better. States she actually feels better than she has in several years. Notes that she mainly has no cravings this morning. Does not actually want to take any opiates at all. She states that that is an unusual feeling for her. Her muscle aches, myalgias and tremors have all improved as well. PHYSICAL EXAMINATION: Vital Signs: Reviewed. Temperature 97.5 degrees pulse 81, respiratory 20, and BP 94/53. General: Patient is awake and alert. She is in no distress. She currently is asymptomatic. HEENT: Normocephalic. Neck: Supple. CARDIOVASCULAR: Regular rate. Chest: Clear. Abdomen: Soft. Extremities: Moves all extremities. Neurologic: No focal changes. ASSESSMENT: 1. Nausea and vomiting. 2. Abdominal pain. 3. Myalgias. 4. Tremors. 5. Paresthesias. 6. Opiate abuse withdrawal and stabilization. 7. Chronic tobacco abuse. 8. Chronic anxiety with frequent panic attacks. PLAN: Discussed with patient the need to continue to wean her Klonopin. We will continue Suboxone at 4 mg twice daily. Continue counseling. Further orders as needed. cc: Louis Reyes MD
[2018-06-26] MEDS: PHENERGAN PO PRN ×2 (13:52→20:01)
[2018-06-26] MEDS: NICODERM PATCH TD PRN (19:54)
[2018-06-27] MEDS: KLONOPIN PO PRN ×2 (02:54→11:23)
[2018-06-27] MEDS: PHENERGAN PO PRN ×2 (04:43→09:18)
[2018-06-27] MEDS: PROTONIX PO SCH (06:08)
[2018-06-27] MEDS: SUBOXONE 2 MG/0.5 MG FILM SL SCH (06:08)
[2018-06-27] MEDS: FOLIC ACID PO SCH (08:35)
[2018-06-27] MEDS: THERA M PLUS PO SCH (08:35)
[2018-06-27] MEDS: VITAMIN B-1 PO SCH (08:35)
[2018-06-27] MEDS: NEURONTIN PO SCH (08:35)
[2018-06-27] MEDS: ORAJEL MAXIMUM STRENGTH LIQUID TOP PRN ×2 (09:17→12:29)
[2018-06-27] MEDS ORDERED: SUBOXONE 2 MG/0.5 MG SL ONE ×2 (10:46)
[2018-06-27] MEDS ORDERED: SUBOXONE 2 MG/0.5 MG FILM SL ONE (12:15)
[2018-06-27] MEDS ORDERED: CARAFATE PO SCH (13:00)
[2018-06-27 13:01] VITALS: BP 96/56
[2018-06-27] MEDS ORDERED: CARAFATE LIQUID PO SCH (14:00)
--- NOTE | 2018-06-28 16:14 | DISCHARGE SUMMARY ---
ADMISSION DATE: 06/25/2018 DISCHARGE DATE: 06/27/2018 DISCHARGE DIAGNOSES: 1. Nausea, vomiting. 2. Abdominal pain. 3. Myalgias. 4. Paresthesias. 5. Paroxysmal sweating. 6. Opiate abuse withdrawal and stabilization. 7. Chronic anxiety. CONSULTATIONS: None. PROCEDURE: None. BRIEF HOSPITAL COURSE: The patient is a 33-year-old female who presented to [facility] program secondary to nausea, vomiting, abdominal pain. She was placed on Suboxone which she tolerated very well. On discharge, she is awake, alert. She is in no distress. She states that she is feeling much better and is asking to go home. DISPOSITION: Patient will be discharged home on Suboxone 11/13. She initially was placed on 4 mg, but this did not alleviate her symptoms and therefore had to be increased to 8. At 8 mg, she notes that she feels better than she has in several years. Patient will be discharged home. Discussed with her that she needs to avoid all persons, places, situations which she has been using and abusing in the past. She needs outpatient life counseling as well as drug counseling. She needs to follow up outpatient with treatment facility of choice. TIME SPENT: Greater than 30 minutes was spent in total care. cc: Louis Reyes MD
== END 2018-06-27 13:23 | disposition home or self-care (01) | DRG 897 ==
LOC: P.DIRADM 11:11 → P.MEDSURG 11:19
PROVIDERS: ADMIT Family Medicine; ATTEND Family Medicine
CPT/HCPCS: 80053; 80104; 80301; 80305; 80307; 80320; 81001; 82055; 82150; 83690; 84703; 85027; 85610; A9270; G0431; G0434; G0477; G0480; G6040